=== PATIENT | male | born 1940 | race African-American/Black ===

== ENCOUNTER 2019-07-31 21:48 | Emergency (ER) | payer MEDICARE, MEDICAID ==
[~2019-07-31] VITALS: Ht 180.3 cm; Wt 80.0 kg
[2019-07-31 21:55] VITALS: BP 140/60
== END 2019-07-31 23:05 | disposition left against medical advice (07) ==
LOC: ER 21:48
DX: Z53.21 Procedure and treatment not carried out due to patient leaving prior to being seen by health care provider (principal); I10 Essential (primary) hypertension; Z88.0 Allergy status to penicillin